=== PATIENT | male | born 1995 | race African-American/Black ===

== ENCOUNTER 2020-12-01 07:09 | Emergency (ER) | payer OTHER | END 2020-12-01 10:22 | disposition home or self-care (01) | LOC: ERS 07:09 | DX: K08.89 Other specified disorders of teeth and supporting structures (principal); J45.909 Unspecified asthma, uncomplicated | CPT/HCPCS: 99283 ==

== ENCOUNTER 2020-12-02 02:27 | Emergency (ER) | payer OTHER ==
[2020-12-02] MEDS ORDERED: HYDROcodone/Acetaminophen 5/325 mg Tablet ONE (03:19)
== END 2020-12-02 03:22 | disposition home or self-care (01) ==
LOC: ERS 02:27
DX: K04.7 Periapical abscess without sinus (principal)
CPT/HCPCS: 99282